=== PATIENT | female | born 1960 | race Caucasian/White ===

== ENCOUNTER 2021-09-20 11:40 | Emergency (ER) | payer OTHER, SELFPAY ==
--- NOTE | ~2021-09-20 | XR_ITS ---
EXAMINATION: XR CHEST CLINICAL INFORMATION: Cough. COMPARISON: None TECHNIQUE: 2 views of the chest were obtained. FINDINGS: The lungs are well-expanded and clear. The heart size and pulmonary vascularity is normal. No gross bony abnormality seen. XR/XR chest 2V IMPRESSION: Unremarkable chest exam.
[2021-09-20 12:16] VITALS: BP 102/51; PULSE 77; RESP 18; TEMP 37.1; O2SAT 98; BMI 26.7
[2021-09-20 12:46] LABS: COVID-19 Test Negative (Negative); IDNOW Serial# 16C4AD1C
[2021-09-20 12:53] LABS: Influenza A Negative (Negative); Influenza B2 Negative (Negative)
--- NOTE | 2021-09-20 14:13 | ED.URI ---
HPI - URI/Sore Throat General Chief Complaint: Upper Respiratory Symptoms Stated Complaint: cough, chest pain Time Seen by Provider: 09/20/21 12:46 History of Present Illness HPI Narrative: Patient complains of cough, runny nose, mild sore throat for 3-4 days, no difficulty breathing no wheezing no chest pain Related Data Previous Rx's Medication Instructions Recorded azithromycin 250 mg tablet See Rx Instructions .ROUTE 09/20/21 (Zithromax Z-Augie) .COMPLEX #6 tab Allergies Allergy/AdvReac Type Severity Reaction Status Date / Time aspirin [ASA] Allergy Unknown UNKNOWN Verified 09/20/21 12:14 Review of Systems Review of Systems: Positive for cough runny nose and mild sore throat Negatives are no fever no chills no dizziness or weakness no fainting no feeling faint no headache no neck pain no difficulty breathing or swallowing no chest pain no shortness of breath no abdominal pain no nausea or vomiting, no anorexia no rash Yes all other systems are reviewed and are negative PMFSH Past Medical History Source: nursing notes reviewed Social History Social History Advance Directives: No Advance Directives Information Provided: Yes Physical Exam Vital Signs: Vital Signs: Last Vital Signs Temp 98.7 F 09/20/21 12:16 Pulse 77 09/20/21 12:16 Resp 18 09/20/21 12:16 BP 102/51 L 09/20/21 12:16 Pulse Ox 98 09/20/21 12:16 BMI result Body Mass Index 26.7 General appearance no distress Eyes anicteric no pallor The pharynx is normal with no redness swelling or exudate mucous membranes are moist Neck is supple Chest clear to auscultation bilateral Heart no murmur Abdomen soft nontender Extremities no edema Skin no rash Course Course Course Narrative: Chest x-ray was negative, COVID test was negative and patient was discharged treated for bronchitis breathing comfortably and well-appearing MDM - URI/Sore Throat Lab Data Labs: Lab Results 09/20/21 09/20/21 Range/Units 12:23 12:23 COVID-19 (KENY) Negative (Negative) COVID-19 Clin Com See Note Influenza Type A (ZEE) Negative (Negative) Influenza Type B (ZEE) Negative (Negative) Influenza A & B Note See Note Discharge Plan Discharge Clinical Impression: Bronchitis Patient Disposition: Home, Self-Care Additional Instructions: Chest x-ray, COVID testing and flu testing were all negative I wrote antibiotic Zithromax for possible bronchitis Return to the ER any time for difficulty breathing any worse condition or any concerns Prescriptions: New azithromycin [Zithromax Z-Augie] 250 mg tablet See Rx Instructions .ROUTE .COMPLEX Qty: 6 0RF Rx Instructions: For 250 mg dose pack: take 500 mg today (day 1), then 250 mg for 4 days (days 2-5) Interventions: ED Discharge Assessment Last Done: 09/20/21 14:22 Discharge Date/Time: 09/20/21 14:23
== END 2021-09-20 14:23 | disposition home or self-care (01) ==
PROVIDERS: Emergency Provider Emergency Medicine; PCP Student in an Organized Health Care Education/Training Program
DX: J40 Bronchitis, not specified as acute or chronic (principal); R05.9 Cough, unspecified; R07.89 Other chest pain; Z20.822 Contact with and (suspected) exposure to COVID-19
CPT/HCPCS: 71046; 87502; 87635; 99283